=== PATIENT | male | born 1980 | race Caucasian/White ===

== ENCOUNTER 2017-09-24 06:03 | Emergency (ER) | payer OTHER ==
--- NOTE | 2017-09-24 06:54 | ED Physician Chart ---
ED Chief Complaint/HPI - Patient Information Allergies:: Allergies Allergy/AdvReac Type Severity Reaction Status Date / Time No Known Allergies Allergy Verified 09/24/17 06:14 Vitals:: Vital Signs - 8 hr 09/24/17 06:05 Temp 97.1 F HR 77 RR 18 BP 148/88 O2 Sat % 97 <Praneeth David - Last Filed: 09/24/17 09:15> - Patient Information Date Seen:: 09/24/17 Time Seen:: 06:54 Chief Complaint:: Right flank pain History of Present Illness:: 37 yo male had sudden onset of right flank pain with pain radiating to right inguinal area. He also had white-colored urethral discharge. He had nausea and diarrhea. Allergies:: Allergies Allergy/AdvReac Type Severity Reaction Status Date / Time No Known Allergies Allergy Verified 09/24/17 06:14 Vitals:: Vital Signs - 8 hr 09/24/17 06:05 Temp 97.1 F HR 77 RR 18 BP 148/88 O2 Sat % 97 <Amrit Ugalde - Last Filed: 01/09/18 20:56> ED Review of Systems - Review of Systems General/Constitutional: No fever, No chills, No weight loss, No weakness, No diaphoresis, No edema, No loss of appetite Skin: No skin lesions, No rash, No bruising Head: No headache, No light-headedness Eyes: No loss of vision, No pain, No diplopia ENT: No earache, No nasal drainage, No sore throat, No tinnitus Neck: No neck pain, No swelling, No thyromegaly, No stiffness, No mass noted Cardio Vascular: No chest pain, No palpitations, No PND, No orthopnea, No edema Pulmonary: No SOB, No cough, No sputum, No wheezing GI: No nausea, No vomiting, No diarrhea, Pain, No melena, No hematochezia, No constipation, No hematemesis G/U: Dysuria, No frequency, No hematuria, No nacturia Musculoskeletal: No bone or joint pain, No back pain, No muscle pain Endocrine: No polyuria, No polydipsia Psychiatric: No prior psych history, No depression, No anxiety, No suicidal ideation, No homicidal ideation, No auditory hallucination, No visual hallucination Hematopoietic: No bruising, No lymphadenopathy Allergic/Immuno: No urticaria, No angioedema Neurological: No syncope, No focal symptoms, No weakness, No paresthesia, No headache, No seizure, No dizziness, No confusion, No vertigo <Praneeth David - Last Filed: 09/24/17 09:15> ED Past Medical History - Past Medical History Family History: HTN Psychiatricy History: None Medication: Reviewed <Praneeth David - Last Filed: 09/24/17 09:15> - Past Medical History Past Medical History: HTN, Other (migraine) Social History: Non Smoker, No Alcohol, No Drug Use Surgical History: None <Amrit Ugalde - Last Filed: 01/09/18 20:56> Family Medical History - Family Member Mother History Unknown: Yes <Amrit Ugalde - Last Filed: 01/09/18 20:56> ED Physical Exam - Physical Examination General/Constitutional: Awake, Well-developed, well-nourished, Alert, No distress, GCS 15, Non-toxic appearing, Ambulatory Head: Atraumatic Eyes: Lids, conjuctiva normal, PERRL, EOMI Skin: Nl inspection, No rash, No skin lesions, No ecchymosis, Well hydrated, No lymphadenopathy ENMT: External ears, nose nl, TM canals nl, Nasal exam nl, Lips, teeth, gums nl , Oropharynx nl, Tonsils nl Neck: Nontender, Full ROM w/o pain, No JVD, No nuchal rigidity, No bruit, No mass, No stridor Other Neck comments:: Supple; no meningeal signs; no cervical tenderness; no bruits Respiratory: Nl effort/Exclusion, Clear to Auscultation, No Wheeze/Rhonchi/Rales Cardio Vascular: RRR, No murmur, gallop, rubs, NL S1 S2, Carotid/Femoral/Distal pulses equal bilaterally GI: No tenderness/rebounding/guarding, No organomegaly, No hernia, Normal BS's, Nondistended, No mass/bruits, No McBurney tenderness : No CVA tenderness Extremities: No tenderness or effusion, Full ROM, normal strength in all extremities, No edema, Normal digits & nails Neuro/Psych: Alert/oriented, DTR's symmetric, Normal sensory exam, Normal motor strength, Judgement/insight normal, Mood normal, Normal gait, No focal deficits Misc: Normal back, No paraspinal tenderness <Praneeth David - Last Filed: 09/24/17 09:15> - Physical Examination Other GI comments:: RLQ tenderness Other comments:: Right CVA tenderness <Amrit Ugalde - Last Filed: 01/09/18 20:56> ED Labs/Radiology/EKG Results - Lab Results Results: Laboratory Tests 09/24/17 09/24/17 09/24/17 06:15 07:25 07:25 WBC 8.5 RBC 6.15 H Hgb 12.2 Hct 39.3 L MCH 19.8 L MCHC Differential 30.9 RDW 15.6 Plt Count 252 MPV 10.0 Neutrophils % 60.6 Lymphocytes % 26.3 Monocytes % 7.6 Eosinophils % 4.9 Basophils % 0.6 PT INR PTT (Actin FS) Sodium 137 Potassium 4.1 Chloride 102 Carbon Dioxide 29.5 Anion Gap 9.6 BUN 14 Creatinine 0.9 Est GFR ( Amer) > 60.0 Est GFR (Non-Af Amer) > 60.0 BUN/Creatinine Ratio 15.6 Glucose 98 Calcium 9.1 Total Bilirubin 1.3 H AST 68 H ALT 134 H Alkaline Phosphatase 56 Total Protein 6.9 Albumin 4.3 Globulin 2.6 Albumin/Globulin Ratio 1.7 Urine Source RANDOM Urine Color YELLOW Urine Clarity CLEAR Urine pH 5.5 Ur Specific [place] 1.025 Urine Protein NEGATIVE Urine Glucose (UA) NEGATIVE Urine Ketones NEGATIVE Urine Blood NEGATIVE Urine Nitrate NEGATIVE Urine Bilirubin NEGATIVE Urine Urobilinogen 0.2 Ur Leukocyte Esterase NEGATIVE Urine RBC 0-2 H Urine WBC 2-5 H Ur Epithelial Cells FEW Urine Bacteria FEW 09/24/17 08:10 WBC RBC Hgb Hct MCH MCHC Differential RDW Plt Count MPV Neutrophils % Lymphocytes % Monocytes % Eosinophils % Basophils % PT 11.1 INR 1.07 PTT (Actin FS) 25.0 L Sodium Potassium Chloride Carbon Dioxide Anion Gap BUN Creatinine Est GFR ( Amer) Est GFR (Non-Af Amer) BUN/Creatinine Ratio Glucose Calcium Total Bilirubin AST ALT Alkaline Phosphatase Total Protein Albumin Globulin Albumin/Globulin Ratio Urine Source Urine Color Urine Clarity Urine pH Ur Specific [place] Urine Protein Urine Glucose (UA) Urine Ketones Urine Blood Urine Nitrate Urine Bilirubin Urine Urobilinogen Ur Leukocyte Esterase Urine RBC Urine WBC Ur Epithelial Cells Urine Bacteria - Radiology Results Comments:: NAD <Praneeth David - Last Filed: 09/24/17 09:15> ED Septic Shock - . Is Septic Shock (SBP<90, OR Lactate>4 mmol\L) present?: No - <6hrs of presentation: Vital Signs: Vital Signs - 8 hr 09/24/17 06:05 Temp 97.1 F HR 77 RR 18 BP 148/88 O2 Sat % 97 <Praneeth David - Last Filed: 09/24/17 09:15> - <6hrs of presentation: Vital Signs: Vital Signs - 8 hr 09/24/17 06:05 Temp 97.1 F HR 77 RR 18 BP 148/88 O2 Sat % 97 <Amrit Ugalde - Last Filed: 01/09/18 20:56> ED Reassessment (Disposition) - Reassessment Reassessment:: pt tolerated po fluids well in ER; pt is asymptomatic upon discharge Reassessment Condition:: Improved - Diagnosis Diagnosis:: Abdominal Pain-Resolved; Flank Pain-Resolved; HTN; Dysuria; Urethritis; UTI; N/V /D; AGE; Gastritis; Gastroenteritis - Aftercare/Follow up Instructions Aftercare/Follow-Up Instructions:: Counseled pt regarding lab results/diagnosis & need follow up, Refer to Discharge Instructions, Counseled pt & family regarding lab results/diagnosis & need follow up Medication Prescribed:: Rx: Doxycycline 100mg po bid x 10 days; Have Blood Pressure Re-Checked in one day; [place] Diet; Clear Liquid Diet; encourage fluids - Patient Disposition Discharge/Transfer:: Home Condition at Disposition:: Stable, Improved (RTER prn if existing s/s reoccur and/or get worse and/or any other new s/s occur; X-Rays Instructions; ACIs given for all above Dx; Refer to GI/ Specialists/[employer] [facility]; F/U with PMD in one day or prn; RTER prn if concerned) <Praneeth David - Last Filed: 09/24/17 09:15> ED Discharge Plan <Praneeth David - Last Filed: 09/24/17 09:15> <Amrit Ugalde - Last Filed: 01/09/18 20:56> - Patient Disposition Admit/Discharge/Transfer: PT DISCHARGED HOME Condition at Disposition: Stable Prescriptions: Doxycycline Hyclate 100 mg PO BID #20 tab Instructions: Gastritis, Adult, [id number], Urethritis, Adult Forms: Work Release Form
[2017-09-24 07:32] LABS: % BASOPHILS 0.6 % (0.0-2.0); % EOSINOPHILS 4.9 % (0.0-5.0); % LYMPHOCYTES 26.3 % (20.0-50.0); % MONOCYTES 7.6 % (2.0-10.0); % NEUTROPHILS 60.6 % (40.0-80.0); BASOPHILE ABSOLUTE 0.1 Th/cumm (0-0.2); EOSINOPHILE ABSOLUTE 0.4 Th/cmm (0.1-0.4); HEMATOCRIT 39.3 % (41.0-60); HEMOGLOBIN 12.2 gm/dL (12-16); LYMPHOCYTE ABSOLUTE 2.2 Th/cmm (1.5-3.0); MEAN CORPUSCULAR HEMOGLOBIN 19.8 pg (26.0-30.0); MEAN CORPUSCULAR HGB CONC 30.9 pg (28.0-36.0); MONOCYTE ABSOLUTE 0.6 Th/cmm (0.3-1.0); NEUTROPHILE ABSOLUTE 5.2 Th/cmm (1.8-8.0); PLATELET COUNT 252 Th/cmm (150-400); RED BLOOD COUNT 6.15 Mil/cmm (4.30-5.70); RED CELL DISTRIBUTION WIDTH 15.6 % (11.5-20.0); WHITE BLOOD COUNT 8.5 Th/cmm (4.8-10.8)
[2017-09-24 08:00] LABS: ALB/GLOB RATIO 1.7 (1.0-1.8); ALBUMIN 4.3 gm/dL (4.2-5.5); ALKALINE PHOSPHATASE 56 U/L (34-104); ANION GAP 9.6 (7.0-16.0); BILIRUBIN,TOTAL 1.3 mg/dL (0.3-1.0); BUN - UREA NITROGEN 14 mg/dL (7-25); CALCIUM SERUM 9.1 mg/dL (8.6-10.3); CARBON DIOXIDE 29.5 mEq/L (21.0-31.0); CHLORIDE 102 mEq/L (98-107); CREATININE - SERUM 0.9 mg/dL (0.7-1.3); GFR AFRICAN-AMERICAN > 60.0 ml/min (>90); GFR NON AFRICAN-AMERICAN > 60.0 ml/min; GLUCOSE 98 mg/dL (70-105); POTASSIUM SERUM 4.1 mEq/L (3.5-5.1); SGOT 68 U/L (13-39); SGPT/ALT 134 U/L (7-52); SODIUM SERUM 137 mEq/L (136-145); TOTAL PROTEIN,SERUM 6.9 gm/dL (6.0-8.3)
--- NOTE | 2017-09-24 08:19 | Diagnostic Imaging Report ---
Exam: CT examination abdomen pelvis. HISTORY: Right flank pain. Total DLP equals 558 CTDI equals 8.9 Findings: Multiple contiguous thin section of the abdomen pelvis obtained from lower thorax to pubic symphysis without the administration of oral or intravenous contrast material, no prior studies available comparison. The study demonstrates normal aeration of the lung parenchyma the bases. Mild fatty infiltration liver parenchyma appreciated. The spleen is intact. The kidneys demonstrate no evidence of obstructive uropathy or nephrolithiasis. The adrenal glands intact. The gallbladder is distended. The pancreas is normal. No free fluid is noted. The appendix is intact. The urinary bladder is normal. The prostate gland is intact. Bony structures demonstrate no evidence for lytic or blastic changes. There is no evidence of diverticular disease of diverticulitis. IMPRESSION: Essentially unremarkable examination the abdomen and pelvis.
[2017-09-24 08:41] LABS: URINE MICROSCOPIC INDICATED? YES; URINE SOURCE RANDOM
[2017-09-24 08:47] LABS: URINE BILIRUBIN NEGATIVE (NEGATIVE); URINE BLOOD NEGATIVE (NEGATIVE); URINE GLUCOSE (UA) NEGATIVE (NEGATIVE); URINE KETONE NEGATIVE (NEGATIVE); URINE LEUKOCYTE ESTERASE NEGATIVE (NEGATIVE); URINE NITRATE NEGATIVE (NEGATIVE); URINE PH 5.5 (4.6 - 8.0); URINE PROTEIN NEGATIVE (NEGATIVE); URINE UROBILINOGEN 0.2 E.U./dL (0.2 - 1.0)
[2017-09-24 08:50] LABS: URINE CLARITY CLEAR (CLEAR); URINE COLOR YELLOW
[2017-09-24 08:52] LABS: URINE BACTERIA FEW /hpf (NONE SEEN); URINE EPITHELIAL CELLS FEW /lpf (FEW); URINE RBC 0-2 /hpf (0-5)
[2017-09-24 08:56] LABS: INR 1.07 (0.5-1.4); PROTHROMBIN TIME (TEST) 11.1 SECONDS (9.5-11.5)
[2017-09-25 08:12] LABS: MEAN CELL VOLUME 63.9 fl (80-99)
== END 2017-09-24 10:11 | disposition home or self-care (01) ==
LOC: ER 06:03
DX: K52.9 Noninfective gastroenteritis and colitis, unspecified (principal); N39.0 Urinary tract infection, site not specified; I10 Essential (primary) hypertension
CPT/HCPCS: 99285; 96372; 74176; 36415; 85025; 85610; 87086; 81001; 80053; J0696